=== PATIENT | male | born 1995 | race Caucasian/White ===

== ENCOUNTER → 2023-10-17 | Outpatient (CLI) | payer OTHER ==
[~2023-10-17] MED LIST: IBUP600 PO
[2023-10-18 16:59] LABS: HIV 1,2 COMBO ANTIGEN/ANTIBODY Negative (Negative)
[2023-10-19 02:45] LABS: HSV 1 GLYCOPROTEIN G AB, IGG 0.27 IV (<=0.89); HSV 2 GLYCOPROTEIN G AB, IGG 0.05 IV (<=0.89)
[2023-10-19 14:04] LABS: APTIMA MEDIA TYPE Urine; C. TRACHOMATIS BY TMA Positive (Negative); N. GONORRHOEAE BY TMA Negative (Negative); SPECIMEN SOURCE Urine
== END | disposition home or self-care (01) ==
LOC: LAB SHORT 13:30 → LAB 13:30
PROVIDERS: Physician Assistant
DX: Z20.9 Contact with and (suspected) exposure to unspecified communicable disease (principal)
CPT/HCPCS: 86592; 86695; 86696; 87389; 87491; 87591